=== PATIENT | female | born 1990 | race Caucasian/White ===

== ENCOUNTER 2022-01-25 08:21 | Inpatient (IN) | payer OTHER ==
[~2022-01-25 08:21] MED LIST: PRENATAL-FOLIC1 EACH PO
--- NOTE | 2022-01-25 10:47 | NUR ---
RT COLLECTED RAPID COVID 19 SWAB/ FLU SWAB/ AND RSV SWAB WITH NO COMPLICATIONS AT THIS TIME.
--- NOTE | 2022-01-25 13:39 | PR ---
[facility] [address] [facility] [place], [place] [address] Signed Progress Notes IP Datetime Report Generated by CPN: 01/25/2022 13:39 PROGRESS NOTES: [id number] Impression: Normal Progression of Labor Procedures: Epidural Placement Plan: Continue Present Management VITAL SIGNS: [id number] Vital Signs: Reviewed; Within Normal Limits EXAM: [id number] Dilatation: 5.0 Effacement: 90 Station: -3 Contractions: ctx q4-7 min MEMBRANES: [id number] Membranes Status: Intact ROM Note: no fluid noted on perineum with nitrizine exam and only vaginal discharge noted on glove with exam. Comments: Progressing slowly, contraction pattern appropriate and regular. Now comfortable with epidural. Isolated late deceleration, responded well to maternal repositioning and IV fluid bolus. Anticipate ROM once FHR stabilized FETUS A: [id number] FHR Baseline: 135 Variability: Moderate 6-25bpm Accelerations: 15X15 Decelerations: None FHR Category: Category I FETUS B: [id number] Signing Physician: Laurita Daily DO Copies: ~ *Electronically Signed* 01/25/22 1339 LAURITA DAILY DO PATIENT NAME: JORGE RODRIGUEZ PROGRESS NOTE DATE OF : [birth year] PHYSICIAN: LAURITA DAILY DO RPT #: [id number] REPORT IS CONFIDENTIAL AND NOT TO BE RELEASED WITHOUT AUTHORIZATION
--- NOTE | 2022-01-25 17:18 | PR ---
[facility] [address] [place], [place] [address] Signed Progress Notes IP Datetime Report Generated by CPN: 01/25/2022 17:18 PROGRESS NOTES: [id number] Impression: Arrest of Dilatation/Descent; Reassuring Heart Rate Procedures: Artificial ROM; Scalp Electrode Plan: Continue Present Management; Anticipate Vaginal Delivery VITAL SIGNS: [id number] Vital Signs: Reviewed; Within Normal Limits EXAM: [id number] Dilatation: 5.0 Effacement: 90 Station: -3 Contractions: ctx q4-7 min MEMBRANES: [id number] Membranes Status: Ruptured ROM Note: no fluid noted on perineum with nitrizine exam and only vaginal discharge noted on glove with exam. Comments: @ 41 weeks gestation -AROM: copious clear fluid, FSE placed due to prolonged deceleration with ROM -Anticipate FETUS A: [id number] FHR Baseline: 135 Variability: Moderate 6-25bpm Accelerations: 15X15 Decelerations: None FHR Category: Category I FETUS B: [id number] Signing Physician: Laurita Daily DO Copies: ~ *Electronically Signed* 01/25/22 1718 LAURITA DAILY DO PATIENT NAME: JORGE RODRIGUEZ PROGRESS NOTE DATE OF : [birth year] PHYSICIAN: LAURITA DAILY #: [id number] REPORT IS CONFIDENTIAL AND NOT TO BE RELEASED WITHOUT AUTHORIZATION
--- NOTE | 2022-01-25 19:47 | NUR ---
01/25/221946 Madonna Becerril 193- PT ARRIVES TO PACU REACTIVE TO STIMULI. PT DOES NOT FOLLOW COMMANDS AT THIS TIME. RESP EVEN AND TACHYPNEIC AT 20-24 BPM. OXYGEN SAT MID TO HIGH 90'S ON RA. 1940- PT MORE AROUSABLE TO STIMULI. PT UPDATED THAT HER BABY AND HER ARE DOING WELL. PT STARTS CRYING AND IS THANKFUL.
--- NOTE | 2022-01-26 10:40 | PR ---
[facility] [address] [facility] [place], [place] [address] Signed PP Progress Notes Datetime Report Generated by ROBERT: 01/26/2022 10:40 SUBJECTIVE: [id number] Pain: Within Normal Limits Nausea/Vomiting: Denies Vital Signs: [id number] Vital Signs: Reviewed; Within Normal Limits Cardiovascular: Normal Respiratory: Normal Abdomen/Uterus: Normal Breasts: Normal Extremities: Normal Incision: Normal Progress: Normal Exam Comments: NAD sitting up in bed, baby asleep in bassinet next to bed RRR No dyspnea/ retractions Abd SNTND, FFBU Ext: 1+ BLLE, neg Holly's BL IMPRESSION/PLAN/PROCEDURES: [id number] Impression: Normal Progression Plan: Continue Present Management Other Procedures: start oral iron Progress Notes: Pt is a 31 yo POD#1 s/p emergency PLTCS under general anesthesia for malpresentation and NRFHT -progressing well postop, reviewed course of second stage of labor and operative course -ambulating, capps still in place, tolerating clears -pain generally well-controlled with orals and toradol, complaining of some incisional burning which responded well to ice initially then poorly. Plan: try heat/ ice/ abdominal binder, continue orals/ toradol Acute blood loss anemia on chronic anemia of -hgb 8.0 POD#1 from 10.8 on admission -start oral iron today, discussed with pt Signing Physician: Laurita Daily DO *Electronically Signed* 01/26/22 1040 LAURITA DAILY DO PATIENT NAME: JORGE RODRIGUEZ PROGRESS NOTE DATE OF : [birth year] PHYSICIAN: LAURITA DAILY DO RPT #: [id number] REPORT IS CONFIDENTIAL AND NOT TO BE RELEASED WITHOUT AUTHORIZATION [facility] [address] [place] [address] Signed Copies: ~ *Electronically Signed* 01/26/22 1040 LAURITA DAILY DO PATIENT NAME: JORGE RODRIGUEZ PROGRESS NOTE DATE OF : [birth year] PHYSICIAN: LAURITA DAILY DO RPT #: [id number] REPORT IS CONFIDENTIAL AND NOT TO BE RELEASED WITHOUT AUTHORIZATION
--- NOTE | 2022-01-27 09:59 | PR ---
[facility] [address] [place], [place] [address] Signed PP Progress Notes Datetime Report Generated by ROBERT: 01/27/2022 09:58 SUBJECTIVE: [id number] Pain: Within Normal Limits Nausea/Vomiting: Denies Flatus: Yes Bowel Movement: No Vital Signs: [id number] Vital Signs: Reviewed; Within Normal Limits Notable Details: mild intermittent tachycardia (up to 120s) Cardiovascular: Normal Respiratory: Normal Abdomen/Uterus: Normal Lochia: Normal Vulva/Perineum: Normal Breasts: Normal CVA Tenderness: Normal Extremities: Normal Incision: Normal Progress: Normal Exam Comments: NAD RRR No dyspnea/ retractions Abd SNTND Extremities: 1+ BLLE, Neg Holly's BL IMPRESSION/PLAN/PROCEDURES: [id number] Impression: Normal Progression Plan: Continue Present Management Other Procedures: start oral iron Progress Notes: Pt is a 31 yo POD#2 s/p PLTCS for malposition and nonreassuring heart tones -Progressing well postop: ambulating/ voiding/ tolerating regular diet, no dizziness/ lightheadedness -Having intermittent gas pain, encouraged use of medication, burning incision pain much improved - well without difficulty -Tolerating oral iron Anticipate DC to home tomorrow *Electronically Signed* 01/27/22 0958 LAURITA DAILY DO PATIENT NAME: JORGE RODRIGUEZ PROGRESS NOTE DATE OF : [birth year] PHYSICIAN: LAURITA DAILY DO RPT #: [id number] REPORT IS CONFIDENTIAL AND NOT TO BE RELEASED WITHOUT AUTHORIZATION [facility] [address] [place], [place] [address] Signed Signing Physician: Laurita Daily DO Copies: ~ *Electronically Signed* 01/27/22 0958 LAURITA DAILY DO PATIENT NAME: JORGE RODRIGUEZ PROGRESS NOTE DATE OF : [birth year] PHYSICIAN: LAURITA DAILY DO RPT #: [id number] REPORT IS CONFIDENTIAL AND NOT TO BE RELEASED WITHOUT AUTHORIZATION
--- NOTE | 2022-01-27 20:07 | OR ---
[facility] [address] [place] [address] Signed DATE OF OPERATION: 01/25/2022 SURGEON: Electronically Signed By: LAURITA DAILY DO 01/27/222006 PATIENT NAME: JORGE RODRIGUEZ OPERATIVE REPORT DATE OF : [birth year] REPORT #: [id number] PHYSICIAN: LAURITA DAILY DO PCP: RUIZ ALATORRE DO REPORT IS CONFIDENTIAL AND NOT TO BE RELEASED WITHOUT AUTHORIZATION [facility] [address] [place] [address] Signed Laurita Daily DO STOCK CONTROL CLERK: Dr. Barajas. ANESTHESIA: Epidural and general. PROCEDURE: Primary low-transverse . PREOPERATIVE DIAGNOSIS: 41 weeks gestation Malposition of fetus Non-reassuring heart tones. POSTOPERATIVE DIAGNOSIS: Term delivered Malposition of fetus Non-reassuring heart tones BLOOD LOSS: 850 mL. FINDINGS: Term male , weighing 9 pounds 7 ounces with Apgars of 8 and 9 at 1 and 5 minutes respectively. Normal-appearing bilateral tubes and ovaries. INDICATIONS: The patient is a 31-year-old, , at 41 weeks gestation, who presented today with complaints of contractions. Upon arrival, she was 3 cm dilated and julien regularly. She progressed to 3.5 cm and was admitted with spontaneous onset of labor. She received an epidural for pain management and when she was 5 cm dilated, amniotomy was performed yielding copious amounts of clear fluid. During amniotomy, heart tones became difficult to trace and scalp electrode was placed. The patient then progressed to complete. By this point, her epidural was wearing off. She was very uncomfortable with contractions and was encouraged to push with contractions. Each time she pushed, she reported she felt like she was passing out and was only able to provide one push with each contraction. However, baby descended well with those pushes with hairless skin visualized at +1 station during pushes, although was Electronically Signed By: LAURITA DAILY DO 01/27/222006 PATIENT NAME: JORGE RODRIGUEZ OPERATIVE REPORT DATE OF : 89 REPORT #: [id number] PHYSICIAN: LAURITA DAILY DO PCP: RUIZ ALATORRE DO REPORT IS CONFIDENTIAL AND NOT TO BE RELEASED WITHOUT AUTHORIZATION [facility] [address] [place] [address] Signed noted to reascend back up the pelvis in between contractions. heart tones dropped to the 80s and improved marginally to the 90s and low 100s with maternal repositioning. She was strongly encouraged to provide three pushes per contraction and pushed with all of her strength due to concern for heart tones. At this point, presenting part could be visibly seen and was noted to be pink and hairless. However, on the second push, it was noted that the pink was a buttock with the anus visible complete with meconium emerging. Palpation of bilateral hips further confirmed breech presentation. Of note, FSE attachment point could not be palpated. The patient was immediately instructed to stop pushing. Terbutaline administration was requested and the patient was emergently verbally consented for code 4 for breech presentation and nonreassuring heart tones. She gave verbal approval and she was taken back to the OR. PROCEDURE IN DETAIL: The patient was taken to the OR, as noted above, where she was moved to the operating table. At this point terbutaline was administered. Roger catheter was replaced. SCDs were placed. Attempts were made to remove FSE but attachment point was still not palpable. FSE cord was cut with bandage scissors. She was prepped with Betadine. Ancef 2 g was administered and she was draped in normal sterile fashion. She was placed under general anesthesia by final canoe inspector. Pfannensteil incision was made with a scalpel and carried down through the underlying of fascia. Peritoneum was entered bluntly and extended laterally with digital traction and hysterotomy was made with a scalpel. Of note, when hysterotomy was made, baby was in a cephalic presentation within the pelvis, although noted to be poorly engaged. Head was elevated and delivered through the hysterotomy without difficulty, followed by shoulders and remainder of body. No nuchal was noted. FSE was noted to be attached to the head. The baby gave a strong spontaneous cry as cord was doubly clamped and cut and baby was handed immediately to waiting nursery team including RT and insurance broker. Cord was doubly clamped and cut to provide a segment for cord gases. Cord blood was collected for type and Torie. Emiliano retractor was placed. Placenta was delivered manually and uterus was cleared of clots and Electronically Signed By: LAURITA DAILY DO 01/27/222006 PATIENT NAME: JORGE RODRIGUEZ OPERATIVE REPORT DATE OF : [birth year] REPORT #: [id number] PHYSICIAN: LAURITA DAILY DO PCP: RUIZ ALATORRE DO REPORT IS CONFIDENTIAL AND NOT TO BE RELEASED WITHOUT AUTHORIZATION [facility] [address] [place], [place] [address] Signed debris. Mild extension of the hysterotomy was noted on the left side of the uterus. On the right, stay suture was placed at the apex with 0 Monocryl. On the left, O'Jenison suture was placed around the uterine ligament after identification of the left ureter far removed from the area of extension. Hysterotomy was then closed in a two layer fashion, first with 0 Monocryl in a running locked fashion, Then, with 0 Monocryl in an imbricating manner. Excellent hemostasis was noted. Following this closure, pelvis was suctioned and irrigated. There was a small area of concern for future oozing or bleeding along the broad ligament on the left and Tisseel was applied. Due to concern for potential bladder injury upon entry, bladder was backfilled with sterile infant formula and noted to be intact. After suction irrigating the pelvis one more time with sterile saline and identification of normal tubes and ovaries as noted above, Emiliano retractor was removed. The peritoneum was closed with 2-0 Vicryl in a running fashion. Xray of the abdomen/pelvis was taken to confirm absence of sponges/instruments, as proper count could not be completed prior to procedure due to emergent nature. Rectus muscle was reapproximated at midline with 0 Vicryl in a simple interrupted fashion. Perforating vessels in the rectus muscle were cauterized with Bovie cautery and fascia was closed with 0 Vicryl in a running fashion working first from right to midline, then from left apex to midline with excellent visualization throughout. Subcutaneous layer was suction irrigated with sterile saline. Perforating vessels were cauterized with Bovie cautery with resulting hemostasis and this layer was reapproximated with 3-0 Vicryl in a running fashion. Skin was closed with skin clips. All sponge and instrument counts were correct. Uterus was Crede'd and was noted to be firm without blood clots. TAP blocks were placed by anesthesia and the patient was taken to PACU for recovery from general anesthesia. Laurita Daily DO EMZ/MODL /[id number] Electronically Signed By: LAURITA DAILY DO 01/27/222006 PATIENT NAME: JORGE RODRIGUEZ OPERATIVE REPORT DATE OF : [birth year] REPORT #: [id number] PHYSICIAN: LAURITA DAILY DO PCP: RUIZ ALATORRE DO REPORT IS CONFIDENTIAL AND NOT TO BE RELEASED WITHOUT AUTHORIZATION [address] [address] Signed Copies: ~ Electronically Signed By: LAURITA DAILY DO 01/27/222006 PATIENT NAME: JORGE RODRIGUEZ EMILIANO OPERATIVE REPORT DATE OF : [birth year] REPORT #: [id number] PHYSICIAN: LAURITA DAILY DO PCP: RUIZ ALATORRE DO REPORT IS CONFIDENTIAL AND NOT TO BE RELEASED WITHOUT AUTHORIZATION
--- NOTE | 2022-01-28 12:05 | PR ---
[facility] [address] [place], [place] [address] Signed PP Progress Notes Datetime Report Generated by CPN: 01/28/2022 12:05 SUBJECTIVE: [id number] Pain: Within Normal Limits Nausea/Vomiting: Denies Flatus: Yes Bowel Movement: No Vital Signs: [id number] Vital Signs: Reviewed; Within Normal Limits Notable Details: PP Hgb/Hct = 8.0/25.1 Cardiovascular: Normal Respiratory: Normal Abdomen/Uterus: Normal Lochia: Normal Vulva/Perineum: Normal Breasts: Normal CVA Tenderness: Normal Extremities: Normal Incision: Normal Progress: Normal Exam Comments: NAD RRR No dyspnea/ retractions Abd SNTND Extremities: 1+ BLLE, Neg Holly's BL IMPRESSION/PLAN/PROCEDURES: [id number] Impression: Normal Progression Other Impression: PP Anemia Plan: Continue Present Management; Remove Juan Carlos; Discharge Procedures: None Other Procedures: start oral iron Progress Notes: Doing well without complaint except for some pain in right end of incision, no swelling, no redness, no gapping. Reassured, will follow for now. Ready to go home. Signing Physician: Ravinder Madison MD Copies: *Electronically Signed* 01/28/22 1207 RAVINDER MADISON MD PATIENT NAME: JORGE RODRIGUEZ PROGRESS NOTE DATE OF : [birth year] PHYSICIAN: RAVINDER MADISON MD RPT #: [id number] REPORT IS CONFIDENTIAL AND NOT TO BE RELEASED WITHOUT AUTHORIZATION [facility] [address] [facility] [place], [place] [address] Signed ~ *Electronically Signed* 01/28/22 1205 RAVINDER MADISON MD PATIENT NAME: JORGE RODRIGUEZ PROGRESS NOTE DATE OF : [birth year] PHYSICIAN: RAVINDER MADISON MD RPT #: [id number] REPORT IS CONFIDENTIAL AND NOT TO BE RELEASED WITHOUT AUTHORIZATION
== END 2022-01-28 18:09 | disposition home or self-care (01) | DRG 787 ==
LOC: FBCO 08:21 → FBC 10:00
PROVIDERS: ADMIT Obstetrics & Gynecology; ATTEND Obstetrics & Gynecology
PROC: 10D00Z1 Extraction of Products of Conception, Low, Open Approach (ICD-10-PCS; 2022-01-25)
PROC: 3E0R3BZ Introduction of Anesthetic Agent into Spinal Canal, Percutaneous Approach (ICD-10-PCS; 2022-01-25)
PROC: 3E0R33Z Introduction of Anti-inflammatory into Spinal Canal, Percutaneous Approach (ICD-10-PCS; 2022-01-25)
PROC: 10H073Z Insertion of Monitoring Electrode into Products of Conception, Via Natural or Artificial Opening (ICD-10-PCS; 2022-01-25)
PROC: 3E0T3BZ Introduction of Anesthetic Agent into Peripheral Nerves and Plexi, Percutaneous Approach (ICD-10-PCS; principal; 2022-01-25 18:00)
DX: O76 Abnormality in fetal heart rate and rhythm complicating labor and delivery (principal); D62 Acute posthemorrhagic anemia; O99.02 Anemia complicating childbirth; Z3A.41 41 weeks gestation of pregnancy; O32.9XX0 Maternal care for malpresentation of fetus, unspecified, not applicable or unspecified; Z37.0 Single live birth; Z20.822 Contact with and (suspected) exposure to COVID-19
CPT/HCPCS: 36415; 74018; 76942; 82803; 85025; 85027; 86850; 86900; 86901; A9270; C9803; J0330; J1100; J1170; J1650; J1885; J2250; J2370; J2405; J2590; J2704; J2795; J3010; J3105; J7121; U0003